=== PATIENT | male | born 1985 | race Caucasian/White ===

== ENCOUNTER 2018-02-07 07:22 | Emergency (ER) | payer OTHER ==
[~2018-02-07] VITALS: Ht 177.8 cm; Wt 68.0 kg
--- NOTE | 2018-02-07 07:34 | ED GENERAL ADULT ---
History of Present Illness General Chief Complaint: Abdominal Pain/Flank Pain Stated Complaint: "SHARP" ABD PAIN Source: patient Exam Limitations: no limitations Vital Signs & Intake/Output Vital Signs & Intake/Output Vital Signs Date Time Temp Pulse Resp B/P B/P Pulse O2 O2 Flow FiO2 Mean Ox Delivery Rate 02/07 1153 97.0 81 18 132/81 98 Room Air Room Air 02/07 0938 98.3 82 17 125/71 96 Room Air 02/07 0725 97.8 111 15 126/84 96 Room Air Room Air Allergies Coded Allergies: No Known Allergies (02/07/18) Reconcile Medications Cephalexin (Keflex) 500 MG CAPSULE 1 CAP PO BID UTI Ibuprofen 600 MG TABLET 1 TAB PO TID PRN PAIN with food Ondansetron HCl (Zofran) 4 MG TABLET 1 TAB PO Q6-8P NAUSEA Tamsulosin HCl (Flomax) 0.4 MG CAP.ER.24H 1 CAP PO DAILY KIDNEY STONE Triage Note: PT TO ED FOR C/C OF LLQ ABD PAIN THAT STARTED A FEW WEEKS AGO. PT REPORTS HE IS A DAILY DRINKER AND LAST DRINK THIS MORNING. WAS SEEN AT [facility] A COUPLE OF SUNDAYS AGO AND "THEY DISMISSED MY PAIN, THEY ONLY CHECKED MY URINE." PT REPORTS HE DID VOMIT X 1 THIS MORNING. DENIES DIARRHEA. Triage Nurses Notes Reviewed? yes Onset: Abrupt Duration: day(s): Timing: recent history HPI: 02/07/18 9:24 am 32-year-old male presents to the emergency department for left lower quadrant abdominal pain. The patient states he was in his usual state of health until approximately 72 hours prior to arrival when he developed severe left lower quadrant abdominal pain. He has no left lower quadrant abdominal tenderness. He says he was treated at [facility] in the emergency department and they did a urinalysis. No other testing was done according to the patient. He still complains of severe pain and vomiting. He says he's been taking Suboxone that he buys. Past History Travel History Traveled to [place] past 21 day No Medical History Any Pertinent Medical History? 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 No Review of Systems Review of Systems Constitutional: Denies: fever. EENTM: Reports: no symptoms. Respiratory: Denies: short of breath. Cardiovascular: Denies: chest pain. GI: Reports: abdominal pain, vomiting. Genitourinary: Reports: no symptoms. Musculoskeletal: Reports: back pain. Skin: Denies: rash. Neurological/Psychological: Reports: no symptoms. Hematologic/Endocrine: Reports: no symptoms. Immunologic/Allergic: Reports: no symptoms. Physical Exam Physical Exam General Appearance: well developed/nourished, alert, awake, anxious, moderate distress Head: atraumatic, normal appearance Eyes: Bilateral: normal appearance, PERRL, EOMI. Ears, Nose, Throat: normal pharynx, normal ENT inspection Neck: normal inspection, supple Respiratory: normal breath sounds, chest non-tender, no respiratory distress Cardiovascular: regular rate/rhythm Peripheral Pulses: 4+ radial (R), 4+ radial (L) Gastrointestinal: soft, non-tender Back: no vertebral tenderness Extremities: normal inspection, no edema Neurologic/Psych: no motor/sensory deficits, awake, alert, oriented x 3 Skin: intact, normal color, warm/dry Core Measures ACS in differential dx? No CVA/TIA Diagnosis: No Sepsis Present: No Sepsis Focused Exam Completed? No Progress Differential Diagnoses I considered the following diagnoses in my evaluation of the patient: [Renal colic, diverticulitis, opiate withdrawal, gastroenteritis, irritable bowel disease, cyclic vomiting syndrome] Plan of Care: Orders Procedure Date/time Status Add-on Test (ER Only) 02/07 1117 Active Add-on Test (ER Only) 02/07 0943 Active HEPATITIS PANEL 02/07 0910 Complete CREATINE PHOSPHOKINASE 02/07 0910 Complete CULTURE,URINE 02/07 0820 Active URINE DRUG SCREEN FOR ER ONLY 02/07 0820 Complete URINALYSIS 02/07 0820 Complete COMPREHENSIVE METABOLIC PANEL 02/07 0820 Complete CBC WITHOUT DIFFERENTIAL 02/07 0820 Complete Laboratory Tests 02/07/18 1003: Urine Opiates Screen < 100, Methadone Screen < 40, Barbiturate Screen < 60, Ur Phencyclidine Scrn < 6.00, Amphetamines Screen < 100, U Benzodiazepines Scrn < 85, Urine Cocaine Screen < 50, Urine Cannabis Screen < 5.00, Urinalysis LIGHT H , Urine Color BLDY H, Urine Clarity HAZY H, Urine pH 6.0, Ur Specific [place] >= 1.030, Urine Protein 100 H, Urine Ketones NEG, Urine Nitrite NEG, Urine Bilirubin NEG@ICTO, Urine Urobilinogen 0.2, Ur Leukocyte Esterase NEG, Ur Microscopic SEDIMENT EXAMINED, Urine RBC PACKD H, Urine WBC 3-5 H, Urine Bacteria RARE H, Urine Mucus MANY H, Urine Hemoglobin LARGE H, Urine Glucose NEG 02/07/18 0910: Anion Gap 12, Estimated GFR > 60, BUN/Creatinine Ratio 17.1, Glucose 119 H, Calcium 8.5, Total Bilirubin 1.0, AST 259 H, ALT 207 H, Alkaline Phosphatase 114, Creatine Kinase 186 H, Total Protein 7.3, Albumin 4.2, Globulin 3.1, Albumin/Globulin Ratio 1.4, Hepatitis A IgM Ab NONREACTIVE, Hep Bs Antigen NONREACTIVE, Hep B Core IgM Ab Conf NONREACTIVE, Hepatitis C Antibody NONREACTIVE 02/07/18 0840: CBC w Diff NO MAN DIFF REQ, RBC 5.05, MCV 90.5, MCH 30.5, MCHC 33.7, RDW 14.2, MPV 7.8, Gran % 73.7, Lymphocytes % 14.8 L, Monocytes % 7.5, Eosinophils % 3.5, Basophils % 0.5, Absolute Granulocytes 4.4, Absolute Lymphocytes 0.9 L, Absolute Monocytes 0.4, Absolute Eosinophils 0.2, Absolute Basophils 0 Microbiology 02/07 1003 URINE ROUT: Urine Culture - RECD Initial ED EKG: none Departure Departure Disposition: STILL A PATIENT Condition: Stable Clinical Impression Primary Impression: Abdominal pain Secondary Impressions: Ureterolithiasis Additional Instructions: PATIENT: SHADY LIGHT PRESENT AGE: 32 PATIENT ACCOUNT NO: [id number] : 87 LOCATION: [facility] ORDERING PHYSICIAN: Javier Gannon DO SERVICE DATE: 02/07/18 EXAM TYPE: CAT - CT ABD & PELVIS W/O IV CONTRAS EXAMINATION: CT ABDOMEN AND PELVIS WITHOUT CONTRAST CLINICAL INFORMATION: Left flank pain. COMPARISON: None. TECHNIQUE: Multidetector volumetric imaging was performed from the superior aspect of the liver through the pubic symphysis. Sagittal and coronal reformatted images were obtained on the technologist's workstation. DLP: 256.10 mGy-cm FINDINGS: LUNG BASES: The visualized lung bases are unremarkable. LIVER, GALLBLADDER, AND BILIARY TREE: The liver is normal in size, shape and has normal contour. Attenuation is markedly diffusely decreased consistent with hepatic steatosis. There is an area of low attenuation in the anterior left lobe which measures 2.3 x 2.0 cm with a linear hyperdensity. This may be consistent with a hemangioma. The gallbladder is well-distended. No radiodense gallbladder calculi demonstrated. There is no evidence of pericholecystic inflammation. PANCREAS: Unremarkable. SPLEEN: The spleen is mildly prominent. It has a craniocaudal dimension of 14.1 cm. Density appears uniform. ADRENAL GLANDS: The adrenal glands are not enlarged. KIDNEYS AND URETERS: Both kidneys are normal in size. There is mild hydronephrosis of the left kidney and there is left-sided hydroureter. There is a 0.3 mm calcification at the left vesicoureteric junction consistent with an obstructive ureteric calculus. There are nonobstructive calcifications at the lower pole of the left kidney measuring 0.4 cm and 0.2 cm (image 66/88, series 802). There is no definite perinephric stranding; there is paucity of perirenal fat. No hydronephrosis or hydroureter are demonstrated on the right. There is a 0.3 cm nonobstructive renal calculus toward the upper pole. BLADDER: The bladder is decompressed. GASTROINTESTINAL TRACT: The stomach appears normal. The loops of small bowel are not distended. The appendix is not definitively identified, there is no evidence of inflammatory change in the pericecal region. There is moderate stool within the large bowel. ABDOMINAL WALL: No significant hernia is appreciated. LYMPH NODES: There are multiple small mesenteric lymph nodes, which are nonspecific. There is no retroperitoneal or pelvic lymphadenopathy. VASCULAR: Evaluation is limited by recommend intravenous contrast. However, there are mild calcified atheromatous plaques in the infrarenal abdominal aorta, bilateral iliac arteries and left femoral artery. PELVIC VISCERA: The prostate gland is is not enlarged. There is no free fluid in the pelvis. OSSEOUS STRUCTURES: There is a mild levoscoliosis in the lumbar spine. There are no acute osseous findings. IMPRESSION: 1. There is a radiodense calculus at the left vesicoureteric junction with mild proximal hydroureter and hydronephrosis. 2. There are nonobstructive renal calculi in both kidneys. 3. The liver has decreased attenuation diffusely consistent with hepatic steatosis. There is an area of low attenuation in the left lobe which may be consistent with a hemangioma. This could be further evaluated with right upper quadrant abdominal ultrasound. 4. There is mild atheromatous calcification as described above. DICTATED BY: Dwayne Acevedo MD DATE/TIME DICTATED:02/07/18906 CLIENT SERVICES ANALYST:AMY DATE/TIME TRANSCRIBED:02/07/18906 CONFIDENTIAL, DO NOT COPY WITHOUT APPROPRIATE AUTHORIZATION. <Electronically signed in Other Vendor System> SIGNED BY: Dwayne Acevedo MD 02/07/18 0929 Departure Forms: Customer Survey General Discharge Information Prescriptions: Current Visit Scripts Ibuprofen 1 TAB PO TID PRN PAIN #30 TAB with food Ondansetron HCl (Zofran) 1 TAB PO Q6-8P #5 TAB Tamsulosin HCl (Flomax) 1 CAP PO DAILY #7 CAP Cephalexin (Keflex) 1 CAP PO BID #14 CAP Comments On reevaluation the patient was asymptomatic. He receives IV fluid. He was discharged on Flomax, Keflex, and ibuprofen. Critical Care Note Critical Care Note Critical Care Time: non-applicable
[2018-02-07 08:53] LABS: ABSOLUTE BASOPHIL COUNT 0 /CUMM (0.0-0.2); ABSOLUTE EOSINOPHIL COUNT 0.2 /CUMM (0.0-0.7); ABSOLUTE GRANULOCYTE CT 4.4 /CUMM (1.4-6.5); ABSOLUTE LYMPH COUNT 0.9 /CUMM (1.2-3.4); ABSOLUTE MONOCYTE COUNT 0.4 /CUMM (0.10-0.60); BASOPHIL % 0.5 % (0.0-2.0); EOSINOPHIL % 3.5 % (0-5); GRANULOCYTE % 73.7 % (42.2-75.2); HEMATOCRIT 45.7 % (42-52); MEAN CORPUSCULAR HGB 30.5 PG (27.0-31.0); MEAN CORPUSCULAR HGB CONC 33.7 G/DL (33.0-37.0); MEAN CORPUSCULAR VOLUME 90.5 FL (80.0-94.0); MEAN PLATELET VOLUME 7.8 FL (7.4-10.4); RBC DISTRIBUTION WIDTH 14.2 % (11.5-14.5); RED BLOOD CELL CT 5.05 /CUMM (4.70-6.10)
--- NOTE | 2018-02-07 09:29 | CT SCAN REPORT ---
EXAMINATION: CT ABDOMEN AND PELVIS WITHOUT CONTRAST CLINICAL INFORMATION: Left flank pain. COMPARISON: None. TECHNIQUE: Multidetector volumetric imaging was performed from the superior aspect of the liver through the pubic symphysis. Sagittal and coronal reformatted images were obtained on the technologist's workstation. DLP: 256.10 mGy-cm FINDINGS: LUNG BASES: The visualized lung bases are unremarkable. LIVER, GALLBLADDER, AND BILIARY TREE: The liver is normal in size, shape and has normal contour. Attenuation is markedly diffusely decreased consistent with hepatic steatosis. There is an area of low attenuation in the anterior left lobe which measures 2.3 x 2.0 cm with a linear hyperdensity. This may be consistent with a hemangioma. The gallbladder is well-distended. No radiodense gallbladder calculi demonstrated. There is no evidence of pericholecystic inflammation. PANCREAS: Unremarkable. SPLEEN: The spleen is mildly prominent. It has a craniocaudal dimension of 14.1 cm. Density appears uniform. ADRENAL GLANDS: The adrenal glands are not enlarged. KIDNEYS AND URETERS: Both kidneys are normal in size. There is mild hydronephrosis of the left kidney and there is left-sided hydroureter. There is a 0.3 mm calcification at the left vesicoureteric junction consistent with an obstructive ureteric calculus. There are nonobstructive calcifications at the lower pole of the left kidney measuring 0.4 cm and 0.2 cm (image 66/88, series 802). There is no definite perinephric stranding; there is paucity of perirenal fat. No hydronephrosis or hydroureter are demonstrated on the right. There is a 0.3 cm nonobstructive renal calculus toward the upper pole. BLADDER: The bladder is decompressed. GASTROINTESTINAL TRACT: The stomach appears normal. The loops of small bowel are not distended. The appendix is not definitively identified, there is no evidence of inflammatory change in the pericecal region. There is moderate stool within the large bowel. ABDOMINAL WALL: No significant hernia is appreciated. LYMPH NODES: There are multiple small mesenteric lymph nodes, which are nonspecific. There is no retroperitoneal or pelvic lymphadenopathy. VASCULAR: Evaluation is limited by recommend intravenous contrast. However, there are mild calcified atheromatous plaques in the infrarenal abdominal aorta, bilateral iliac arteries and left femoral artery. PELVIC VISCERA: The prostate gland is is not enlarged. There is no free fluid in the pelvis. OSSEOUS STRUCTURES: There is a mild levoscoliosis in the lumbar spine. There are no acute osseous findings. IMPRESSION: 1. There is a radiodense calculus at the left vesicoureteric junction with mild proximal hydroureter and hydronephrosis. 2. There are nonobstructive renal calculi in both kidneys. 3. The liver has decreased attenuation diffusely consistent with hepatic steatosis. There is an area of low attenuation in the left lobe which may be consistent with a hemangioma. This could be further evaluated with right upper quadrant abdominal ultrasound. 4. There is mild atheromatous calcification as described above.
[2018-02-07 10:04] LABS: PLATELET COUNT 190 /CUMM (130-400)
[2018-02-07] MEDS ORDERED: IBUPROFEN600 M1 PO (11:15)
[2018-02-07] MEDS ORDERED: KEFLEX500 M1 PO (11:15)
[2018-02-07] MEDS ORDERED: FLOMAX0.4 M1 PO (11:15)
[2018-02-07] MEDS ORDERED: ZOFRAN4 M2 PO (11:15)
[2018-02-07 11:53] VITALS: BP 132/81
[2018-02-24] MEDS ORDERED: ZOFRAN ODT4 M1 SL (23:55)
[2018-02-24] MEDS ORDERED: PERCOCET 5-3251 EACH PO (23:55)
== END 2018-02-07 11:53 ==
LOC: ERH 07:22
PROVIDERS: Emergency Medicine
DX: N20.1 Calculus of ureter (principal)
CPT/HCPCS: 74176; 80307; 81001; 87086; 96361; 96374; J1885